=== PATIENT | male | born 1965 | race Caucasian/White ===

== ENCOUNTER 2024-08-04 18:33 | Inpatient (IN) | payer MEDICAID ==
[~2024-08-04] VITALS: Ht 167.6 cm; Wt 74.8 kg
[2024-08-04 18:52] VITALS: BP_SYST 130; RESP 16; TEMP 97.8; O2SAT 98
[2024-08-04 19:44] LABS: BASOPHILS # (AUTO) 0.1 K/uL (0.0-0.2); BASOPHILS % (AUTO) 0.9 % (0.0-2.0); EOSINOPHILS # (AUTO) 0.3 K/uL (0.0-0.4); EOSINOPHILS % (AUTO) 4.3 % (0.0-4.0); HEMATOCRIT 22.7 % (36-54); HEMOGLOBIN 7.8 g/dL (14.0-18.0); LYMPHOCYTES # (AUTO) 0.8 K/uL (1.0-5.5); LYMPHOCYTES % (AUTO) 10.5 % (20.5-51.5); MEAN CORPUSCULAR HEMOGLOBIN 29 pg (27-31); MEAN CORPUSCULAR HGB CONC 34 % (32-36); MEAN CORPUSCULAR VOLUME 86 fL (79.0-98.0); MONOCYTES # (AUTO) 0.5 K/uL (0.0-1.0); MONOCYTES % (AUTO) 6.4 % (1.7-9.3); NEUTROPHILS # (AUTO) 6.3 K/uL (1.8-7.7); NEUTROPHILS % (AUTO) 77.9 % (40.0-70.0); PLATELET COUNT (AUTO) 259 K/uL (130-430); RED BLOOD CELL COUNT(AUTO) 2.66 MIL/uL (4.2-6.2); RED CELL DISTRIBUTION WIDTH 14.3 % (9.0-15.0)
[2024-08-04 19:58] LABS: INR 1.1 (0.80-1.20); PROTHROMBIN TIME 11.2 SECS (9.5-12.5)
[2024-08-04 20:01] LABS: ANION GAP 14 (5-15); CALCIUM 7.7 mg/dL (8.4-11.0); CARBON DIOXIDE 26 mmol/L (23-29); CHLORIDE 95 mmol/L (98-107); GFR AFRICAN AMERICAN 5 mL/min (>90); GLUCOSE 166 mg/dL (74-106); POTASSIUM 4.1 mmol/L (3.5-5.1); SODIUM SERUM 135 mmol/L (136-145); UREA NITROGEN, BLOOD 68 mg/dL (8-21)
[2024-08-04 20:17] LABS: GFR NON AFRICAN-AMERICAN 4 mL/min (>90)
[2024-08-04 20:18] LABS: CREATININE 12.36 mg/dL (0.55-1.30)
[2024-08-04] MEDS ORDERED: HYDROcodone/ACETAMIN 10-325 MG TAB PO PRN (21:15)
[2024-08-04] MEDS ORDERED: ONDANSETRON HCL 4 MG/2 ML VIAL IVP PRN (21:15)
[2024-08-04] MEDS ORDERED: HYDROcodone/ACETAMIN 5-325 MG TAB (NORCO/ VICODIN) PO PRN (21:15)
[2024-08-04] MEDS ORDERED: ACETAMINOPHEN 325 MG TABLET PO PRN (21:15)
[2024-08-04] MEDS ORDERED: ALBUTEROL SULFATE 0.083% 2.5 MG/3 ML VIAL.NEB INH PRN (21:15)
[2024-08-04] MEDS ORDERED: IPRATROPIUM BROM 0.5 MG/2.5 ML VIAL.NEB (ATROVENT) INH PRN (21:15)
[2024-08-04] MEDS ORDERED: DEXTROSE 50% JECT 50 ML DISP.SYRIN IVP PRN (21:15)
[2024-08-04] MEDS ORDERED: ZOLPIDEM TARTRATE 5 MG TABLET PO PRN (21:30)
[2024-08-04 22:00] VITALS: BP_SYST 112; PULSE 70; O2SAT 96
[2024-08-04] MEDS: ASPIRIN 81 MG TAB.CHEW PO ONE (22:05)
[2024-08-04] MEDS ORDERED: FURO80TA86 PO (22:42)
[2024-08-04] MEDS ORDERED: NIFE-129 PO (22:42)
[2024-08-04] MEDS ORDERED: CARV25TA55 PO (22:42)
[2024-08-04] MEDS ORDERED: HYDR100T13 PO (22:42)
[2024-08-04] MEDS ORDERED: DOCU-144 PO (22:42)
[2024-08-04] MEDS ORDERED: FERR210T PO (22:42)
[2024-08-04] MEDS ORDERED: CLON0.1T PO (22:42)
[2024-08-04] MEDS ORDERED: CLON1PAT9 TD (22:43)
[2024-08-04] MEDS ORDERED: CLON1PAT11 TD (22:43)
[2024-08-04 23:18] VITALS: BP_SYST 129; PULSE 64; RESP 16; TEMP 97.8; O2SAT 100
[2024-08-05] VITALS (10 sets, daily range): BP systolic 116–189; PULSE 62–78; RESP 16–18; TEMP 97.6–98.9; O2SAT 97–100
[2024-08-05] MEDS ORDERED: ALBUTEROL SULFATE 0.083% 2.5 MG/3 ML VIAL.NEB INH SCH (01:00)
[2024-08-05] MEDS: hydrALAZINE HCL 20 MG/ML VIAL IVP PRN (05:38)
[2024-08-05] MEDS ORDERED: BUDESONIDE 0.5 MG/2 ML AMPUL.NEB INH SCH (07:00)
[2024-08-05] MEDS ORDERED: BUDESONIDE/FORMOTEROL 80-4.5 mCg, 6.9 GM INHALER INH SCH (09:00)
[2024-08-05 09:41] LABS: BASOPHILS # (AUTO) 0.1 K/uL (0.0-0.2); BASOPHILS % (AUTO) 1.1 % (0.0-2.0); EOSINOPHILS # (AUTO) 0.4 K/uL (0.0-0.4); HEMATOCRIT 23.1 % (36-54); HEMOGLOBIN 7.7 g/dL (14.0-18.0); LYMPHOCYTES # (AUTO) 1.3 K/uL (1.0-5.5); LYMPHOCYTES % (AUTO) 19.4 % (20.5-51.5); MEAN CORPUSCULAR HEMOGLOBIN 29 pg (27-31); MEAN CORPUSCULAR HGB CONC 33 % (32-36); MEAN CORPUSCULAR VOLUME 87 fL (79.0-98.0); MONOCYTES # (AUTO) 0.4 K/uL (0.0-1.0); MONOCYTES % (AUTO) 5.3 % (1.7-9.3); NEUTROPHILS # (AUTO) 4.7 K/uL (1.8-7.7); NEUTROPHILS % (AUTO) 68.2 % (40.0-70.0); PLATELET COUNT (AUTO) 278 K/uL (130-430); RED BLOOD CELL COUNT(AUTO) 2.67 MIL/uL (4.2-6.2); RED CELL DISTRIBUTION WIDTH 14.6 % (9.0-15.0); WHITE BLOOD COUNT (AUTO) 6.9 K/uL (4.8-10.8)
[2024-08-05 09:55] LABS: ALBUMIN 2.3 g/dL (3.4-4.8); CALCIUM 7.6 mg/dL (8.4-11.0); POTASSIUM 4.4 mmol/L (3.5-5.1); TOTAL BILIRUBIN 0.5 mg/dL (0.0-1.0)
[2024-08-05 09:56] LABS: TOTAL IRON BIND. CAPACITY 172 ug/dL (250-450)
[2024-08-05] MEDS: ASPIRIN 81 MG TABLET(ECOTRIN) PO SCH (09:59)
[2024-08-05] MEDS: NIFEdipine 30 MG TAB.ER.24 PO SCH (09:59)
[2024-08-05 10:05] LABS: CREATININE 13.36 mg/dL (0.55-1.30)
[2024-08-05] MEDS ORDERED: NITROGLYCERIN 0.4 MG TAB.SUBL SL PRN (11:30)
[2024-08-05] MEDS ORDERED: IRON DEXTRAN COMPLEX 100 MG in NS 100 ML IV SCH (15:15)
[2024-08-05] MEDS: INSULIN LISPRO SLIDING SCALE 100 UNITS/ML, 3 ML VIAL (humaLOG) SUBCUT PRN (17:18)
[2024-08-05] MEDS: SOD FERRIC GLUC COMPLEX/SUC 125 MG in NS 100 ML IV SCH (17:19)
[2024-08-05] MEDS: ATORVASTATIN 20 MG TABLET PO SCH (22:04)
[2024-08-05] MEDS: hydrALAZINE HCL 25 MG TABLET PO SCH (22:04)
[2024-08-05] MEDS: CARVEDILOL 12.5 MG TABLET (COREG) PO SCH (22:05)
[2024-08-06 01:01] VITALS: BP_SYST 107; PULSE 64; RESP 15; TEMP 97.3; O2SAT 100
[2024-08-06 07:19] LABS: CALCIUM 7.5 mg/dL (8.4-11.0)
[2024-08-06 07:39] LABS: BASOPHILS # (AUTO) 0.1 K/uL (0.0-0.2); BASOPHILS % (AUTO) 1.2 % (0.0-2.0); EOSINOPHILS # (AUTO) 0.3 K/uL (0.0-0.4); EOSINOPHILS % (AUTO) 4.5 % (0.0-4.0); HEMATOCRIT 24.5 % (36-54); HEMOGLOBIN 8.1 g/dL (14.0-18.0); LYMPHOCYTES # (AUTO) 0.9 K/uL (1.0-5.5); LYMPHOCYTES % (AUTO) 14.9 % (20.5-51.5); MEAN CORPUSCULAR HEMOGLOBIN 28 pg (27-31); MEAN CORPUSCULAR HGB CONC 33 % (32-36); MEAN CORPUSCULAR VOLUME 86 fL (79.0-98.0); MONOCYTES # (AUTO) 0.4 K/uL (0.0-1.0); MONOCYTES % (AUTO) 6.6 % (1.7-9.3); NEUTROPHILS # (AUTO) 4.4 K/uL (1.8-7.7); NEUTROPHILS % (AUTO) 72.8 % (40.0-70.0); PLATELET COUNT (AUTO) 286 K/uL (130-430); RED BLOOD CELL COUNT(AUTO) 2.85 MIL/uL (4.2-6.2); RED CELL DISTRIBUTION WIDTH 14.1 % (9.0-15.0)
[2024-08-06 07:56] LABS: CREATININE 12.99 mg/dL (0.55-1.30)
[2024-08-06 08:00] VITALS: BP_SYST 161; PULSE 76; RESP 16; TEMP 97.7; O2SAT 98
[2024-08-06 08:28] LABS: HEMOGLOBIN A1C 5.8 % (<5.7)
[2024-08-06 12:25] VITALS: BP_SYST 128; PULSE 79; RESP 16; TEMP 98.4; O2SAT 96
[2024-08-06] MEDS ORDERED: LIP20 PO (13:36)
[2024-08-06] MEDS ORDERED: NIFEdipine PO (13:36)
[2024-08-06] MEDS ORDERED: APIX2.5T PO (13:36)
[2024-08-06] MEDS ORDERED: COR12.5 PO (13:36)
[2024-08-06] MEDS ORDERED: CALCIUM CARBONATE 500 MG/ TAB.CHEW PO ONE (14:15)
[2024-08-06] MEDS: hydrALAZINE HCL 25 MG TABLET PO SCH (14:46)
[2024-08-06] MEDS ORDERED: CLON1PAT11 TD (14:48)
[2024-08-06 16:14] VITALS: BP_SYST 123; PULSE 76; RESP 18; TEMP 97.7; O2SAT 97
[2024-08-06 16:48] VITALS: BP_SYST 123; PULSE 76; RESP 18; TEMP 97.7; O2SAT 97
[2024-08-06] MEDS ORDERED: CALCIUM CARBONATE 500 MG/ TAB.CHEW PO SCH (21:00)
[2024-08-06] MEDS ORDERED: APIXABAN 2.5 MG TABLET PO SCH (21:00)
[2024-08-08] MEDS ORDERED: EPOETIN ALFA-EPBX 4,000 UNITS/ML VIAL SUBCUT SCH (09:00)
== END 2024-08-06 17:50 | disposition home or self-care (01) | DRG 203 ==
LOC: SED 18:33 → STU 21:02
PROVIDERS: ADMIT Internal Medicine; ATTEND Internal Medicine
PROC: 3E1M39Z Irrigation of Peritoneal Cavity using Dialysate, Percutaneous Approach (ICD-10-PCS; principal; 2024-08-05)
DX: M94.0 Chondrocostal junction syndrome [Tietze] (principal); E44.1 Mild protein-calorie malnutrition; I13.2 Hypertensive heart and chronic kidney disease with heart failure and with stage 5 chronic kidney disease, or end stage renal disease; N18.6 End stage renal disease; E11.22 Type 2 diabetes mellitus with diabetic chronic kidney disease; D63.1 Anemia in chronic kidney disease; E78.5 Hyperlipidemia, unspecified; I50.32 Chronic diastolic (congestive) heart failure; I48.0 Paroxysmal atrial fibrillation; Z79.899 Other long term (current) drug therapy; Z88.8 Allergy status to other drugs, medicaments and biological substances; Z68.26 Body mass index [BMI] 26.0-26.9, adult
CPT/HCPCS: 36415; 71045; 80048; 80053; 83037; 83540; 83550; 83880; 84484; 85025; 85610; 85730; 90945; 93005; 93306; 99285; G0378; J0360; J2916